=== PATIENT | male | born 1980 | race Caucasian/White ===

== ENCOUNTER 2018-02-09 15:43 | Emergency (ER) | payer MEDICAID ==
[2018-02-09] MEDS: ALBUTEROL 0.083% (NEB) 2.5 MG/3 ML AMP HHN (16:39)
[2018-02-09] MEDS: predniSONE 20 MG TAB PO (16:46)
[2018-02-09] MEDS: ACETAMINOPHEN 325 MG TAB PO (16:46)
== END 2018-02-09 17:43 | disposition home or self-care (01) ==
LOC: E/R 15:43 → FTE 17:43
DX: R05 Cough (principal)
CPT/HCPCS: 71045; 94664; 99284-25